=== PATIENT | male | born 1975 | race Hispanic/Latino ===

== ENCOUNTER 2016-07-20 17:02 | Emergency (ER) | payer SELFPAY ==
[~2016-07-20] VITALS: Ht 172.7 cm; Wt 109.1 kg
[2016-07-20 17:05] VITALS: BP 217/130; PULSE 80; RESP 22; O2SAT 99
[2016-07-20] MEDS ORDERED: 0.9% Sodium Chloride 1,000 ML IV ONE (17:16)
[2016-07-20] MEDS ORDERED: Ondansetron 2 mg/mL 2 mL Inj IVPUSH ONE (17:20)
[2016-07-20] MEDS ORDERED: HYDROmorphone 1 mg/mL Inj IVPUSH ONE (17:20)
--- NOTE | 2016-07-20 17:21 | ED.REPORT ---
HPI-Abd Pain M 40 and Over Date of Service Jul 20, 2016 ED Provider: History of Present Illness: 40-year-old male here for periumbilical abdominal pain 2 days. Slight nausea, no vomiting. He has soft stools. He has all of his organs. He has had chills but no fever. No urinary symptoms. no Testicular symptoms. Patient is not sexually active no discharge Nursing Notes Stated Complaint: ABDOMINAL PAIN Chief Complaint: Male Abdominal Pain Nursing Notes Reviewed: Yes Allergies: Coded Allergies: No Known Allergies (Unverified , 07/20/16) Scheduled Amoxicillin/Clav K 875-125 mg (Augmentin 875-125 mg) 1 Each Tablet 1 TABLET PO BID Lisinopril (Lisinopril) 20 Mg Tablet 20 MG PO DAILY Scheduled PRN Ondansetron ODT (Zofran ODT) 4 Mg Tablet 4 MG PO Q4H PRN PRN For Nausea General Time Seen by MD: 17:08 Chief Complaint Abdominal pain Hx Obtained From: Patient Arrived By: Walk-in Sudden in Onset?: Yes Onset Occurred: 2 days ago Symptom Duration: Constant Location: : Periumbilical Severity: Current: Severe Severity: Maximum: Severe Similar Sx Previous: No Past Medical History Past Medical History Notes: htn Review of Systems Basic Review of Systems Eyes: Vision NL ENT: Hearing NL Hematologic: No bleeding Allergy / Immune: No allergy Neurologic: NL mental status Psychiatric: Normal thought content Constitutional: Reports: Chills, Denies: Fatigue, Fever Respiratory: Denies: Dyspnea on exertion, Non-productive cough Cardiovascular: Denies: Chest pain GI: Reports: Abdominal pain, Anorexia, Nausea Male: Denies Dysuria, Denies Penile discharge, Denies Testicular pain, Denies Testicular swelling, Denies Urinary frequency, Denies Urinary urgency Complete sys rev & neg: except as marked. Physical Exam Initial Vital Signs Vital Signs (First) Date Time Temp Pulse Resp B/P Pulse Ox O2 Delivery O2 Flow Rate FiO2 07/20/16 17:05 36.1 80 22 217/130 99 Room Air Initial VS: Reviewed, Vital signs abnormal General/Constitutional: Awake, Alert appears in distress. gaurding abd Respiratory / Chest: Breath sounds NL, Breath sounds = bilat, No respiratory distress, No rales, No rhonchi, No wheezing Cardiovascular: Heart rate NL, Regular rhythm, Heart sounds NL, Peripheral circulation NL Abdomen: Soft, McBurney's non-tender, No rebound, BS normoactive, No distention , No hernia, No palpable mass, No pulsatile mass tender periumbilical Back: Inspection NL, Non-tender, No CVA tenderness Male Genitourinary: Inspection NL, Penis NL, No penile discharge, Testes NL, Epididymis NL, No mass, No hernia, No lesions or rash Interpretation & Diagnostics Lab Results Interpretation Result Diagram: 07/20/16 1800 07/20/16 1800 Test 07/20/16 18:00 07/20/16 19:02 White Blood Count 11.1th/mm3 (3.8-10.1) Red Blood Count 4.81mil/mm3 (4.40-5.80) Hemoglobin 15.1g/dL (13.8-17.2) Hematocrit 40.8% (41.0-50.0) Mean Corpuscular Volume 84.8fL (81-100) Mean Corpuscular Hemoglobin 31.4pg (27.0-35.0) Mean Corpuscular Hemoglobin Concent 37.0% (32.0-37.0) Red Cell Distribution Width 12.4% (12.3-15.4) Platelet Count 275bil/L (150-400) Neutrophils (%) (Auto) 77.9% (40-74) Lymphocytes (%) (Auto) 13.9% (14-46) Monocytes (%) (Auto) 6.6% (4-12) Eosinophils (%) (Auto) 0.6% (0-5) Basophils (%) (Auto) 0.5% (0-3) Sodium Level 139mEq/L (134-144) Potassium Level 3.0mEq/L (3.5-5.2) Chloride Level 101mEq/L (97-108) Carbon Dioxide Level 25mmol/L (18-29) Blood Urea Nitrogen 12mg/dL (6-24) Creatinine 0.75mg/dL (0.76-1.27) Estimat Glomerular Filtration Rate 123mL/min (>59) Glucose Level 114mg/dL (60-99) Calcium Level 9.0mg/dL (8.5-10.1) Magnesium Level 1.9mg/dL (1.6-2.6) Total Bilirubin 0.7mg/dL (0.0-1.2) Aspartate Amino Transf (AST/SGOT) 13U/L (0-50) Alanine Aminotransferase (ALT/SGPT) 17U/L (0-44) Alkaline Phosphatase 62U/L (25-150) Total Protein 7.2g/dL (6.4-8.4) Albumin 4.1g/dL (3.4-5.0) Lipase 39U/L (13-60) Urine Color Yellow (YELLOW) Urine Appearance Hazy (CLEAR,HAZY) Urine pH 6.5 (5.0-8.0) Urine Specific [place] 1.005 (1.003-1.035) Urine Protein Negativemg/dL (NEG,TRACE) Urine Glucose (UA) Negativemg/dL (NEGATIVE) Urine Ketones Negativemg/dL (NEGATIVE) Urine Occult Blood Small (NEGATIVE) Urine Nitrite Negative (NEGATIVE) Urine Bilirubin Negative (NEGATIVE) Urine Urobilinogen Normalmg/dL (NORMAL) Urine Leukocyte Esterase Negative (NEGATIVE) Urine RBC 0-2/hpf (0-2) Urine WBC 0-5/hpf (0-5) Urine Epithelial Cells None/hpf (NONE-MOD) Urine Crystals Amorphous urates (NONE Urine Bacteria None/hpf (NONE-FEW) Urine Hyaline Casts None/lpf (NONE) Urine Granular Casts None seen (NONE SEEN) Urine Waxy Casts None seen (NONE SEEN) Urine Red Blood Cell Casts None seen (NONE SEEN) Urine White Blood Cell Casts None seen (NONE SEEN) Urine Mucus None seen (None Seen) Urine Trichomonas None seen (NONE SEEN) Urine Yeast None (NONE SEEN) Urinalysis Comment None Urine Culture Reflexed Not indicated CT Abd / Pelvis Interpretation IMPRESSION: 1. Mild colonic wall thickening likely reflecting a mild infectious or inflammatory colitis. 2. No evidence of appendicitis. Re-Eval/Medical Decision Med Decision/Clinical Course CT shows colitis. Patient still hypertensive at 201/116. Patient states his blood pressure is always in the 200s over 100. He is asymptomatic he does not have any chest pain, shortness of breath, GUILLAUME or dizziness. He used to take lisinopril without any issues but he stopped This years ago. His previous PCP is in [place], he has no local PCP. His abdominal pain is improved and he is a symptomatic at this time. Will treat for For colitis. We will also restart him on his lisinopril and he will monitor his blood pressure patient setting. Follow-up in 2 days with either the walk in clinic or with the PCP if he can get them. Discharge & Departure Primary Impression: Colitis, acute Additional Impression: Hypertension Hypertension type: essential hypertension Qualified Code: I10 - Essential ( primary) hypertension Disposition: Home Vital Signs - All Vital Signs Date Time Temp Pulse Resp B/P Pulse Ox O2 Delivery O2 Flow Rate FiO2 07/20/16 20:47 36.2 80 18 180/110 100 Room Air 07/20/16 17:05 36.1 80 22 217/130 99 Room Air )( All Prior VS Reviewed: Yes Condition: Stable Patient Instructions: Acute Abdominal Pain (ED), Hypertension (ED), Infectious Colitis (ED) Additional Instructions: Taken out about excess prescribed for infection. Follow-up immediately if you get severe abdominal pain, fevers, vomiting. Restart your lisinopril that I prescribed for you today. Take blood pressures daily and follow-up in 2 days for blood pressure and abdominal issues with either a new primary care provider or he could do this at the walk in clinic. Return immediately if chest pain, headaches, dizziness or shortness of breath. you should buy a blood pressure cuff and check your blood pressure daily Referrals: NOPCP (PCP) Pardeep Sanches MD (Family) [facility] Provider for [facility]: Marin Alonso Linnea K ARNP Jul 20, 2016 17:21
[2016-07-20 18:17] LABS: BASOPHILS % (AUTO) 0.5 % (0-3); EOSINOPHILS % (AUTO) 0.6 % (0-5)
[2016-07-20 18:22] LABS: MONOCYTES % (AUTO) 6.6 % (4-12); Mean Corpuscular Hemoglobin 31.4 pg (27.0-35.0); Mean Corpuscular Volume 84.8 fL (81-100); NEUTROPHILS % (AUTO) 77.9 % (40-74); Platelet Count 275 bil/L (150-400)
[2016-07-20 18:43] LABS: Magnesium 1.9 mg/dL (1.6-2.6)
[2016-07-20 19:33] LABS: APPEARANCE,URINE HAZY (CLEAR,HAZY); COLOR,URINE YELLOW (YELLOW); OCCULT BLOOD,URINE SMALL (NEGATIVE); PH,URINE 6.5 (5.0-8.0); UROBILINOGEN,URINE NORMAL (NORMAL)
--- NOTE | 2016-07-20 19:53 | DRSVH ---
PROCEDURE: CT ABDOMEN AND PELVIS WITH CONTRAST ([id number]) INDICATIONS: periumbilical pain TECHNIQUE: After the administration of oral and intravenous contrast, 5 mm thick sections acquired from the diap hragms to the symphysis. 5 mm thick coronal and sagittal reformats were performed. For radiation do se reduction, the following was used: automated exposure control, adjustment of mA and/or kV accordi ng to patient size. COMPARISON: None. FINDINGS: Image quality: Excellent. ABDOMEN: Lung bases: Lung bases are clear. Heart size is normal. Solid organs: Liver and spleen are normal in size and enhancement. Gallbladder appears within megan l limits without calcified gallstones. Biliary system is non-dilated. Pancreas enhances normally. No adrenal nodules. Kidneys are normal in size and enhancement, without hydronephrosis. Peritoneum and bowel: Stomach and small bowel loops are normal in caliber and wall thickness. The a ppendix is normal in appearance. There is suggestion of mild colonic wall thickening most prominent in the ascending colon but evaluation is limited due to nondistention. Colonic diverticulosis is pre sent without acute diverticulitis. No free fluid or air. Nodes and vessels: No retroperitoneal or mesenteric adenopathy. Aorta and inferior vena cava are no rmal in caliber. Miscellaneous: No ventral hernias. PELVIS: Genitourinary: Bladder wall thickness is normal. Miscellaneous: No inguinal hernias or adenopathy. Bones: No suspicious bony lesions. No vertebral body compression fractures. IMPRESSION: 1. Mild colonic wall thickening likely reflecting a mild infectious or inflammatory colitis. 2. No evidence of appendicitis. Dictated by: Rodolfo Esqueda M.D. on 07/20/2016 at 19:47 Approved by: Rodolfo Esqueda M.D. on 07/20/2016 at 19:51
[2016-07-20] MEDS ORDERED: Amoxicillin-Clav 875-125 mg Tablet PO ONE (20:05)
[2016-07-20] MEDS ORDERED: LISI-567 PO (20:20)
[2016-07-20] MEDS ORDERED: AMOX-366 PO (20:20)
[2016-07-20] MEDS ORDERED: ONDA4TAB9 PO (20:21)
[2016-07-20 20:47] VITALS: BP 180/110; PULSE 80; RESP 18; O2SAT 100
== END 2016-07-20 20:49 | disposition home or self-care (01) ==
LOC: SED 17:02
DX: K52.9 Noninfective gastroenteritis and colitis, unspecified (principal); I10 Essential (primary) hypertension; R11.0 Nausea; Z79.2 Long term (current) use of antibiotics
CPT/HCPCS: 36415; 74177; 80053; 81000; 83690; 83735; 85025; 96361; 96374; 96375; 99285; J1170; J2405; J7030; Q9967